=== PATIENT | female | born 2000 | race Caucasian/White ===

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

== ENCOUNTER → 2021-06-06 | Outpatient (CLI) | payer OTHER ==
[~2021-06-06] MED LIST changes: -AMPICILLIN SOD/SULBACTAM SOD 3 GM in D5W MINI-BAG PLUS 100 ML IV ONE; -CEFD1CAP8 PO; +CEFD300C41 PO; -LR 1,000 ML IV ONE; -dexameTHASONE 4 MG/ML 1ML VIAL (J1100 PER 1MG) IV ONE
[2021-06-06 14:10] LABS: HEMATOCRIT 39.1 % (36.0-47.0); HEMOGLOBIN 13.4 g/dl (12.0-15.5); MEAN CORPUSCULAR HEMOGLOBIN 31.2 pg (27.0-33.0); MEAN CORPUSCULAR HGB CONC 34.3 g/dl (32.0-36.5); MEAN CORPUSCULAR VOLUME 91.1 fl (80.0-96.0); PLATELET COUNT, AUTOMATED 284 10^3/uL (150-450); RED BLOOD COUNT 4.29 10^6/uL (4.00-5.40); WHITE BLOOD COUNT 9.7 10^3/uL (4.0-10.0)
[2021-06-06 15:16] LABS: GC DNA AMPLIFICATION NEGATIVE (NEGATIVE)
[2021-06-06 15:30] LABS: HEPATITIS B SURFACE ANTIGEN NEGATIVE (NEGATIVE); HIV 1&2 SCREEN CENTAUR NEGATIVE (NEGATIVE)
== END ==
LOC: M PLALAB 10:35
PROVIDERS: ATTEND Obstetrics & Gynecology
DX: Z34.91 Encounter for supervision of normal pregnancy, unspecified, first trimester (principal)

== ENCOUNTER → 2021-07-07 | Outpatient (CLI) | payer OTHER | LOC: M PLALAB 12:16 | PROVIDERS: ATTEND Obstetrics & Gynecology | DX: Z34.82 Encounter for supervision of other normal pregnancy, second trimester (principal); Z3A.00 Weeks of gestation of pregnancy not specified ==

== ENCOUNTER → 2021-08-28 | Outpatient (CLI) | payer OTHER | LOC: M WHC 09:24 | PROVIDERS: ATTEND Specialist | DX: Z36.2 Encounter for other antenatal screening follow-up (principal); Z3A.22 22 weeks gestation of pregnancy ==

== ENCOUNTER → 2021-09-26 | Outpatient (CLI) | payer OTHER | LOC: M WHC 07:29 | PROVIDERS: ATTEND Obstetrics & Gynecology | DX: Z36.2 Encounter for other antenatal screening follow-up (principal); Z3A.26 26 weeks gestation of pregnancy ==

== ENCOUNTER → 2021-10-05 | Outpatient (CLI) | payer OTHER ==
[2021-10-05 14:17] LABS: HEMATOCRIT 32.8 % (36.0-47.0); HEMOGLOBIN 11.2 g/dl (12.0-15.5); MEAN CORPUSCULAR HEMOGLOBIN 31.9 pg (27.0-33.0); MEAN CORPUSCULAR HGB CONC 34.1 g/dl (32.0-36.5); MEAN CORPUSCULAR VOLUME 93.4 fl (80.0-96.0); PLATELET COUNT, AUTOMATED 310 10^3/uL (150-450); RED BLOOD COUNT 3.51 10^6/uL (4.00-5.40); WHITE BLOOD COUNT 13.4 10^3/uL (4.0-10.0)
[2021-10-05 16:25] LABS: GC DNA AMPLIFICATION NEGATIVE (NEGATIVE)
== END ==
LOC: M PLALAB 12:15
PROVIDERS: ATTEND Obstetrics & Gynecology
DX: Z34.82 Encounter for supervision of other normal pregnancy, second trimester (principal); Z3A.22 22 weeks gestation of pregnancy

== ENCOUNTER → 2021-10-12 | Outpatient (CLI) | payer OTHER | LOC: M LAB 08:29 | PROVIDERS: ATTEND Obstetrics & Gynecology | DX: R73.09 Other abnormal glucose (principal) ==

== ENCOUNTER → 2021-11-01 | Outpatient (CLI) | payer OTHER | LOC: M WHC 16:11 | PROVIDERS: ATTEND Advanced Practice Midwife | DX: O09.899 Supervision of other high risk pregnancies, unspecified trimester (principal); Z3A.00 Weeks of gestation of pregnancy not specified ==

== ENCOUNTER → 2021-11-21 | Outpatient (CLI) | payer OTHER | LOC: M WHC 07:01 | PROVIDERS: ATTEND Advanced Practice Midwife | DX: O09.899 Supervision of other high risk pregnancies, unspecified trimester (principal) ==

== ENCOUNTER → 2021-11-21 | Outpatient (REF) | payer OTHER | LOC: M SFHCWAGY 16:59 | PROVIDERS: ATTEND Obstetrics & Gynecology | DX: R30.0 Dysuria (principal) ==

== ENCOUNTER → 2021-12-12 | Outpatient (REF) | payer OTHER | LOC: M SFHCWAGY 14:55 | PROVIDERS: ATTEND Obstetrics & Gynecology | DX: Z36.89 Encounter for other specified antenatal screening (principal); Z3A.37 37 weeks gestation of pregnancy ==

== ENCOUNTER → 2021-12-19 | Outpatient (CLI) | payer OTHER ==
[2021-12-19 15:38] LABS: HEMATOCRIT 38.9 % (36.0-47.0); HEMOGLOBIN 12.6 g/dl (12.0-15.5); MEAN CORPUSCULAR HEMOGLOBIN 28.3 pg (27.0-33.0); MEAN CORPUSCULAR HGB CONC 32.4 g/dl (32.0-36.5); MEAN CORPUSCULAR VOLUME 87.4 fl (80.0-96.0); PLATELET COUNT, AUTOMATED 252 10^3/uL (150-450); RED BLOOD COUNT 4.45 10^6/uL (4.00-5.40); WHITE BLOOD COUNT 13.3 10^3/uL (4.0-10.0)
[2021-12-19 16:03] LABS: ALT/SGPT 11 U/L (12-78); BILIRUBIN,TOTAL 0.2 MG/DL (0.2-1.0); CREATININE FOR GFR 0.69 MG/DL (0.55-1.30); LDH LACTATE DEHYDROGENASE 180 U/L (84-246); URIC ACID 4.8 MG/DL (2.6-6.0)
[2021-12-19 16:20] LABS: CREATININE,RANDOM URINE 79.9 MG/DL
== END ==
LOC: M PLALAB 11:55
PROVIDERS: ATTEND Advanced Practice Midwife
DX: O16.9 Unspecified maternal hypertension, unspecified trimester (principal)

== ENCOUNTER 2022-01-01 09:45 | Inpatient (IN) | payer OTHER ==
[2022-01-01] VITALS (39 sets, daily range): BP systolic 113–193; BP diastolic 58–119
[~2022-01-01] VITALS: Ht 149.9 cm; Wt 73.0 kg
[2022-01-01] MEDS ORDERED: LIDOCAINE 1% MDV 20ML VIAL INFIL PRN (10:10)
[2022-01-01] MEDS ORDERED: METHYLERGONOVINE MALEATE 0.2 MG/ML VIAL (J2210) IM PRN (10:10)
[2022-01-01] MEDS ORDERED: TRANEXAMIC ACID INJection 1,000 MG in NS 100 ML IV PRN (10:10)
[2022-01-01] MEDS ORDERED: OXYTOCIN DRIP 30 UNITS in IV 1 EA IV SCH (10:10)
[2022-01-01] MEDS ORDERED: CARBOPROST TROMETHAMINE 250 MCG/ML AMP IM PRN (10:10)
[2022-01-01] MEDS ORDERED: OXYTOCIN DRIP 30 UNITS in IV 1 EA IV PRN ×4 (10:10)
[2022-01-01] MEDS ORDERED: OXYTOCIN INJ 10 UNITS/ML VIAL (J2590) IM PRN (10:10)
[2022-01-01] MEDS: LR 1,000 ML IV SCH ×2 (10:53→18:06)
[2022-01-01 11:11] LABS: HEMATOCRIT 39.5 % (36.0-47.0); MEAN CORPUSCULAR HEMOGLOBIN 28.6 pg (27.0-33.0); MEAN CORPUSCULAR HGB CONC 32.9 g/dl (32.0-36.5); PLATELET COUNT, AUTOMATED 266 10^3/uL (150-450); RED BLOOD COUNT 4.54 10^6/uL (4.00-5.40); WHITE BLOOD COUNT 15.7 10^3/uL (4.0-10.0)
[2022-01-01] MEDS ORDERED: PEPC1TAB5 PO (11:29)
[2022-01-01] MEDS ORDERED: PRENTAB9 PO (11:29)
[2022-01-01] MEDS ORDERED: HOME MED LIST COMPLETE! XX SCH (11:30)
[2022-01-01] MEDS ORDERED: LR 1,000 ML IV ONE (11:30)
[2022-01-01] MEDS ORDERED: PROMETHAZINE 25MG/ML 1ML VIAL IV PRN (11:55)
[2022-01-01] MEDS ORDERED: BUTORPHANOL 2 MG/ML INJ (J0595) IV ONE (11:55)
[2022-01-01 12:01] LABS: ALT/SGPT 11 U/L (12-78); BILIRUBIN,TOTAL 0.2 MG/DL (0.2-1.0); CREATININE FOR GFR 0.66 MG/DL (0.55-1.30); LDH LACTATE DEHYDROGENASE 216 U/L (84-246); URIC ACID 5.3 MG/DL (2.6-6.0)
[2022-01-01 12:06] LABS: CREATININE,RANDOM URINE 78.2 MG/DL; TOTAL PROTEIN,RANDOM URINE 90.6 MG/DL (0.0-12.0)
[2022-01-01] MEDS ORDERED: diphenhydrAMINE 50MG/ML VIAL (J1200) IV PRN (17:35)
[2022-01-01] MEDS ORDERED: EPIDURAL/PCA KEYS XX PRN (17:35)
[2022-01-01] MEDS ORDERED: ONDANSETRON 4MG 2ML VIAL IV PRN (17:35)
[2022-01-01] MEDS ORDERED: NALOXONE INJ 0.4MG/1ML VIAL (J2310 PER 1MG) IV PRN (17:35)
[2022-01-01] MEDS ORDERED: ePHEDrine SULFATE 25 MG/5 ML(5MG/ML) SYRINGE IVP PRN (17:35)
[2022-01-01] MEDS ORDERED: LR 500 ML IV PRN (17:35)
[2022-01-01] MEDS ORDERED: FENTANYL/ROPIVACAINE/NACL BAG 100 ML EPIDURAL SCH (17:35)
[2022-01-01] MEDS ORDERED: ACETAMINOPHEN 500 MG TAB PO PRN (23:30)
[2022-01-01] MEDS ORDERED: DIBUCAINE 1% OINTMENT 30GM TOP PRN (23:30)
[2022-01-01] MEDS ORDERED: RHOGAM 300 MCG (1500 IU) INJ (J2790) IM SCH (23:30)
[2022-01-01] MEDS ORDERED: DOCUSATE SODIUM 100MG CAPSULE PO PRN (23:30)
[2022-01-01] MEDS ORDERED: METHYLERGONOVINE MALEATE 0.2 MG TAB PO PRN (23:30)
[2022-01-01] MEDS: NIFEdipine 30 MG XL TAB PO SCH (23:51)
[2022-01-02] VITALS (8 sets, daily range): BP systolic 111–169; BP diastolic 57–97
[2022-01-02] MEDS: IBUPROFEN 600MG TAB PO PRN ×3 (04:18→19:53)
[2022-01-02 08:55] LABS: HEMATOCRIT 36.4 % (36.0-47.0); HEMOGLOBIN 11.6 g/dl (12.0-15.5); MEAN CORPUSCULAR HEMOGLOBIN 28.2 pg (27.0-33.0); MEAN CORPUSCULAR HGB CONC 31.9 g/dl (32.0-36.5); MEAN CORPUSCULAR VOLUME 88.6 fl (80.0-96.0); PLATELET COUNT, AUTOMATED 226 10^3/uL (150-450); RED BLOOD COUNT 4.11 10^6/uL (4.00-5.40); WHITE BLOOD COUNT 19.7 10^3/uL (4.0-10.0)
[2022-01-02] MEDS: NIFEdipine 30 MG XL TAB PO SCH (08:55)
[2022-01-02] MEDS: PRENATAL VITAMINS CHEWABLE TABLET PO SCH (09:03)
[2022-01-02 09:32] LABS: ALBUMIN 2.5 GM/DL (3.2-5.2); ALT/SGPT 12 U/L (12-78); BILIRUBIN,TOTAL 0.2 MG/DL (0.2-1.0); BLOOD UREA NITROGEN 12 MG/DL (7-18); CALCIUM LEVEL 9.1 MG/DL (8.5-10.1); CARBON DIOXIDE LEVEL 24 MEQ/L (21-32); CHLORIDE LEVEL 107 MEQ/L (98-107); GLUCOSE, FASTING 91 MG/DL (70-100); POTASSIUM SERUM 4.1 MEQ/L (3.5-5.1); SODIUM LEVEL 137 MEQ/L (136-145); TOTAL PROTEIN 5.7 GM/DL (6.4-8.2)
[2022-01-03] MEDS: IBUPROFEN 600MG TAB PO PRN ×2 (01:55→12:51)
[2022-01-03 02:00] VITALS: BP 118/75
[2022-01-03 06:00] VITALS: BP 107/51
[2022-01-03 08:32] VITALS: BP 133/84
[2022-01-03] MEDS: PRENATAL VITAMINS CHEWABLE TABLET PO SCH (08:34)
[2022-01-03 08:43] VITALS: BP 133/84
[2022-01-03] MEDS: NIFEdipine 30 MG XL TAB PO SCH (08:43)
[2022-01-03] MEDS ORDERED: MEASLES,MUMPS,RUBELLA VACCINE INJ (MMR-II) (90707) SC.IMMUN ONE (09:00)
== END 2022-01-03 16:50 | disposition home or self-care (01) | DRG 560 ==
LOC: M LDI 09:45 → M OBS 01-02 01:04
PROVIDERS: ADMIT Advanced Practice Midwife; ATTEND Obstetrics & Gynecology
PROC: 10E0XZZ Delivery of Products of Conception, External Approach (ICD-10-PCS; principal; 2022-01-01)
PROC: 0HQ9XZZ Repair Perineum Skin, External Approach (ICD-10-PCS; 2022-01-01)
PROC: 10907ZC Drainage of Amniotic Fluid, Therapeutic from Products of Conception, Via Natural or Artificial Opening (ICD-10-PCS; 2022-01-01)
DX: O13.4 Gestational [pregnancy-induced] hypertension without significant proteinuria, complicating childbirth (principal); Z3A.40 40 weeks gestation of pregnancy; O70.0 First degree perineal laceration during delivery; Z37.0 Single live birth

== ENCOUNTER → 2022-06-14 | Outpatient (REF) | payer OTHER ==
[~2022-06-14] MED LIST changes: +PEPC1TAB5 PO; +PRENTAB9 PO
== END ==
LOC: M PLALAB 12:33
PROVIDERS: ATTEND Obstetrics & Gynecology
DX: Z01.419 Encounter for gynecological examination (general) (routine) without abnormal findings (principal)

== ENCOUNTER → 2023-05-24 | Outpatient (CLI) | payer OTHER ==
[~2023-05-24] MED LIST changes: +CEFD1CAP9 PO; -CEFD300C41 PO; +DICY-61 PO; -DICY10CA13 PO; +SENN-111 PO; -SENN18TA PO
[2023-05-24 19:07] LABS: HEMATOCRIT 38.7 % (36.0-47.0); HEMOGLOBIN 13.5 g/dl (12.0-15.5); MEAN CORPUSCULAR HEMOGLOBIN 31.3 pg (27.0-33.0); MEAN CORPUSCULAR HGB CONC 34.9 g/dl (32.0-36.5); MEAN CORPUSCULAR VOLUME 89.6 fl (80.0-96.0); PLATELET COUNT, AUTOMATED 310 10^3/uL (150-450); RED BLOOD COUNT 4.32 10^6/uL (4.00-5.40); WHITE BLOOD COUNT 10.8 10^3/uL (4.0-10.0)
[2023-05-24 20:12] LABS: HIV 1&2 SCREEN NEGATIVE (NEGATIVE)
[2023-05-24 20:21] LABS: HEPATITIS C VIRUS ABY INDEX < 0.02 INDEX (<0.8)
== END ==
LOC: M PLALAB 15:19
PROVIDERS: ATTEND Advanced Practice Midwife
DX: Z34.91 Encounter for supervision of normal pregnancy, unspecified, first trimester (principal)

== ENCOUNTER → 2023-06-21 | Outpatient (REF) | payer OTHER ==
[2023-06-21 19:19] LABS: GC DNA AMPLIFICATION NEGATIVE (NEGATIVE)
== END ==
LOC: M SFHCWAGY 16:57
PROVIDERS: ATTEND Advanced Practice Midwife
DX: Z34.91 Encounter for supervision of normal pregnancy, unspecified, first trimester (principal)

== ENCOUNTER → 2023-07-09 | Outpatient (CLI) | payer OTHER | LOC: M WHC 06:56 | PROVIDERS: ATTEND Advanced Practice Midwife | DX: O99.342 Other mental disorders complicating pregnancy, second trimester (principal) ==

== ENCOUNTER → 2023-09-03 | Outpatient (CLI) | payer OTHER | LOC: M RAD 14:13 | PROVIDERS: ATTEND Obstetrics & Gynecology | DX: Z36.2 Encounter for other antenatal screening follow-up (principal) ==

== ENCOUNTER → 2023-09-11 | Outpatient (CLI) | payer OTHER ==
[2023-09-11 13:45] LABS: HEMATOCRIT 36.8 % (36.0-47.0); HEMOGLOBIN 12.2 g/dl (12.0-15.5); MEAN CORPUSCULAR HEMOGLOBIN 32.4 pg (27.0-33.0); MEAN CORPUSCULAR HGB CONC 33.2 g/dl (32.0-36.5); MEAN CORPUSCULAR VOLUME 97.9 fl (80.0-96.0); PLATELET COUNT, AUTOMATED 244 10^3/uL (150-450); RED BLOOD COUNT 3.76 10^6/uL (4.00-5.40); WHITE BLOOD COUNT 12.4 10^3/uL (4.0-10.0)
[2023-09-11 13:53] LABS: GC DNA AMPLIFICATION NEGATIVE (NEGATIVE)
== END ==
LOC: M PLALAB 07:53
PROVIDERS: ATTEND Advanced Practice Midwife
DX: Z34.82 Encounter for supervision of other normal pregnancy, second trimester (principal)

== ENCOUNTER → 2023-11-12 | Outpatient (REF) | payer OTHER | LOC: M PLALAB 13:54 | PROVIDERS: ATTEND Advanced Practice Midwife | DX: Z36.85 Encounter for antenatal screening for Streptococcus B (principal); Z3A.36 36 weeks gestation of pregnancy ==

== ENCOUNTER → 2023-11-15 | Outpatient (CLI) | payer OTHER | LOC: M WHC 12:36 | PROVIDERS: ATTEND Obstetrics & Gynecology | DX: O09.893 Supervision of other high risk pregnancies, third trimester (principal); Z3A.36 36 weeks gestation of pregnancy ==

== ENCOUNTER 2023-12-13 15:59 | Inpatient (IN) | payer OTHER, MEDICAID ==
[~2023-12-13] VITALS: Ht 149.9 cm; Wt 73.0 kg
[2023-12-13] MEDS ORDERED: OXYTOCIN INJ 10UNITS/ML 1ML VIAL IM PRN (16:50)
[2023-12-13] MEDS ORDERED: METHYLERGONOVINE MALEATE 0.2MG/ML 1ML VIAL IM PRN (16:50)
[2023-12-13] MEDS ORDERED: TRANEXAMIC ACID INJection 1,000 MG in NS 100 ML IV PRN (16:50)
[2023-12-13] MEDS ORDERED: OXYTOCIN DRIP 30 UNITS in IV 1 EA IV PRN (16:50)
[2023-12-13 16:53] VITALS: BP 110/70
[2023-12-13] MEDS: miSOPROStol 50MCG 1/2 TABLET PO SCH (17:50)
[2023-12-13 18:05] LABS: HEMATOCRIT 34.1 % (36.0-47.0); HEMOGLOBIN 11.4 g/dl (12.0-15.5); MEAN CORPUSCULAR HEMOGLOBIN 30.5 pg (27.0-33.0); MEAN CORPUSCULAR HGB CONC 33.4 g/dl (32.0-36.5); MEAN CORPUSCULAR VOLUME 91.2 fl (80.0-96.0); PLATELET COUNT, AUTOMATED 247 10^3/uL (150-450); RED BLOOD COUNT 3.74 10^6/uL (4.00-5.40); WHITE BLOOD COUNT 11.4 10^3/uL (4.0-10.0)
[2023-12-13] MEDS ORDERED: HOME MED LIST COMPLETE! XX SCH (18:40)
[2023-12-13 18:52] VITALS: BP 105/58
[2023-12-13 19:07] LABS: HEPATITIS C VIRUS ABY INDEX < 0.02 INDEX (<0.8)
[2023-12-13 20:05] VITALS: BP 117/65
[2023-12-13 21:36] VITALS: BP 140/58
[2023-12-14] VITALS (16 sets, daily range): BP systolic 102–137; BP diastolic 53–83; TEMP 97.6; O2SAT 97–98
[2023-12-14] MEDS: BUTORPHANOL 2 MG/ML 1ML VIAL IV ONE (08:43)
[2023-12-14] MEDS: PROMETHAZINE 25MG/ML 1ML VIAL IV ONE (08:44)
[2023-12-14] MEDS: OXYTOCIN DRIP 30 UNITS in IV 1 EA IV SCH (09:41)
[2023-12-14] MEDS: LR 1,000 ML IV SCH (09:41)
[2023-12-14] MEDS: LACTATED RINGER'S 1000 ML IV STA (11:50)
[2023-12-14] MEDS ORDERED: ePHEDrine SULFATE 25 MG/5 ML(5MG/ML) SYRINGE IVP PRN (12:55)
[2023-12-14] MEDS ORDERED: EPIDURAL/PCA KEYS XX PRN (12:55)
[2023-12-14] MEDS ORDERED: FENTANYL/ROPIVACAINE/NACL BAG 100 ML EPIDURAL SCH (12:55)
[2023-12-14] MEDS ORDERED: diphenhydrAMINE 50MG/ML VIAL IV PRN (12:55)
[2023-12-14] MEDS ORDERED: LR 500 ML IV PRN (12:55)
[2023-12-14] MEDS ORDERED: ONDANSETRON 4MG 2ML VIAL IV PRN (12:55)
[2023-12-14] MEDS ORDERED: NALOXONE INJ 0.4MG/1ML VIAL IV PRN (12:55)
[2023-12-14] MEDS ORDERED: FENTANYL 2MCG/ML ROPIVACAINE 0.2% IN 0.9% NACL 100ML IVBAG As Ordered ONE (12:56)
[2023-12-14] MEDS: LIDOCAINE 1% MDV 20ML VIAL INFIL PRN (14:18)
[2023-12-14 14:27] LABS: CORD GAS ABE V -3.6; CORD GAS HCO3 V 22.6 MMOL/L; CORD GAS PCO2 V 44.6 mmHg; CORD GAS PH V 7.322 UNITS; CORD GAS SBC V 20.7 MMOL/L; CORD GAS TCO2 V 23.9 MMOL/L
[2023-12-14 14:28] LABS: CORD GAS ABE A -3.4; CORD GAS HCO3 A 25.9 MMOL/L; CORD GAS O2 SAT A 17.9 %; CORD GAS PCO2 A 62.5 mmHg; CORD GAS PH A 7.235 UNITS; CORD GAS PO2 A 11.9 mmHg; CORD GAS SBC A 19.5 MMOL/L; CORD GAS TCO2 A 27.8 MMOL/L
[2023-12-14] MEDS ORDERED: IBUPROFEN 600MG TAB PO PRN (14:35)
[2023-12-14] MEDS ORDERED: DOCUSATE SODIUM 100MG CAPSULE PO PRN (14:35)
[2023-12-14] MEDS ORDERED: ACETAMINOPHEN TAB 650MG DOSE (2X325MG) PO PRN (14:35)
[2023-12-14] MEDS ORDERED: RHO(D) IMMUNE GLOBULIN/MALTOSE 500MCG(2500IU)/2.2ML VIAL (WINRHO) IM SCH (14:35)
[2023-12-14] MEDS ORDERED: METHYLERGONOVINE MALEATE 0.2 MG TAB PO PRN (14:35)
[2023-12-14] MEDS: DIBUCAINE 1% OINTMENT 30GM TOP PRN (16:24)
[2023-12-14] MEDS: IBUPROFEN 800 MG TAB PO PRN (18:16)
[2023-12-15] MEDS: ACETAMINOPHEN 500 MG TAB PO PRN (05:26)
[2023-12-15 05:45] VITALS: BP 110/56; O2SAT 98
[2023-12-15] MEDS: PRENATAL VITAMINS CHEWABLE TABLET PO SCH (09:49)
[2023-12-15 18:00] VITALS: BP 113/58; O2SAT 99
[2023-12-16 06:00] VITALS: BP 93/49; O2SAT 100
[2023-12-16] MEDS ORDERED: IBUP80TA PO (08:24)
[2023-12-16] MEDS ORDERED: ACET-683 PO (08:24)
[2023-12-16] MEDS: MEASLES,MUMPS,RUBELLA VACCINE INJ (MMR-II) SC.IMMUN ONE (09:00)
== END 2023-12-16 15:45 | disposition home or self-care (01) | DRG 560 ==
LOC: M LDI 15:59 → M OBS 12-14 15:55
PROVIDERS: ADMIT Advanced Practice Midwife; ATTEND Specialist
PROC: 3E0P7GC Introduction of Other Therapeutic Substance into Female Reproductive, Via Natural or Artificial Opening (ICD-10-PCS; 2023-12-13)
PROC: 10E0XZZ Delivery of Products of Conception, External Approach (ICD-10-PCS; principal; 2023-12-14)
PROC: 0KQM0ZZ Repair Perineum Muscle, Open Approach (ICD-10-PCS; 2023-12-14)
DX: O48.0 Post-term pregnancy (principal); F17.290 Nicotine dependence, other tobacco product, uncomplicated; O99.334 Smoking (tobacco) complicating childbirth; O69.89X0 Labor and delivery complicated by other cord complications, not applicable or unspecified; O66.0 Obstructed labor due to shoulder dystocia; O70.1 Second degree perineal laceration during delivery; Z37.0 Single live birth; Z3A.40 40 weeks gestation of pregnancy

== ENCOUNTER → 2024-12-24 | Outpatient (REF) | payer MEDICAID, OTHER ==
[~2024-12-24] MED LIST changes: +ACET-683 PO; +IBUP80TA PO; -SENN-111 PO; +SENN-165 PO
== END ==
LOC: M SFHCWAGY 12:45
PROVIDERS: ATTEND Nurse Practitioner Family
DX: Z01.411 Encounter for gynecological examination (general) (routine) with abnormal findings (principal)